=== PATIENT | female | born 1980 | race Caucasian/White ===

== ENCOUNTER 2019-08-27 16:35 | Emergency (ER) | payer BC ==
[2019-08-27] MEDS ORDERED: Sodium Chloride 0.9% 10 ML Syringe FLUSH PRN (17:07)
[2019-08-27] MEDS ORDERED: LORazepam 2 MG/ML SDV IVPUSH ONE (17:07)
[2019-08-27] MEDS ORDERED: Ketorolac 30 MG/ML SDV IVPUSH ONE (17:07)
--- NOTE | 2019-08-27 17:14 | EDM.PDOC ---
ED HPI GENERAL MEDICAL PROBLEM - General Chief Complaint: Chest Pain Stated Complaint: CHEST PAIN Time Seen by Provider: 08/27/19 16:47 Source of Information: Reports: Patient, Old Records (from patient's avery on phone), RN Notes Reviewed History Limitations: Reports: No Limitations - History of Present Illness INITIAL COMMENTS - FREE TEXT/NARRATIVE: Patient is a 38-year-old female who presents to the ED for the evaluation of midsternal chest pain. Patient notes that this is intermittent, feels like a dull ache at all times, but then sometimes increases to an intense gripping or pressure type feeling. Patient notes she did have pain like this once before about 1 year ago, and was found to be having a panic attack. Patient notes that her and her family were coming back from [facility] from a skiing trip, and she states the roads were not necessarily the greatest, so she was not sure if she was worked up due to the roads or not. Patient denies any heart history, or any lung issues prior to this. Patient states she has not been on any meds for her anxiety. She denies any sort of control use, she is not a smoker, and has not had any recent surgeries, however she did have a viral upper respiratory infection around beginning of July. Patient has a primary care provider out of [facility] in [facility]. Patient states she has some mild nausea, but no vomiting or diarrhea. She notes that she did not have any sort of trauma or accident while skiing. She does note however she thought she may have been a little "out of shape". Mid-Sternal Chest Pain Score (Numeric/FACES): 8 - Related Data Allergies Allergy/AdvReac Type Severity Reaction Status Date / Time No Known Allergies Allergy Verified 08/27/19 16:48 Home Meds: Home Meds Ergocalciferol (Vitamin D2) [Vitamin D2] 50,000 unit PO ASDIRECTED 08/27/19 [ History] Lisinopril/Hydrochlorothiazide [Lisinopril-HCTZ 10-12.5 MG] 1 tab PO DAILY 08/27 [History] amLODIPine [Norvasc] 5 mg PO DAILY 08/27/19 [History] metFORMIN [Glucophage] 500 mg PO DAILY 08/27/19 [History] Past Medical History HEENT History: Reports: Impaired Vision Other HEENT History: Wears glasses Cardiovascular History: Reports: Hypertension [employer] History: Reports: Endocrine/Metabolic History: Reports: Diabetes, Type II Social & Family History - Tobacco Use Smoking Status *Q: Former Smoker Used Tobacco, but Quit: Yes Month/Year Tobacco Last Used: 2008 - Recreational Drug Use Recreational Drug Use: No ED ROS GENERAL - Review of Systems Review Of Systems: See Below Constitutional: Denies: Fever, Chills Respiratory: Reports: Shortness of Breath (with pain spells). Denies: Wheezing , Cough Cardiovascular: Reports: Chest Pain (midsternal intermittent CP). Denies: Lightheadedness, Palpitations GI/Abdominal: Reports: Nausea. Denies: Abdominal Pain, Constipation, Diarrhea, Vomiting Musculoskeletal: Denies: Neck Pain, Shoulder Pain, Arm Pain, Back Pain Neurological: Denies: Numbness, Tingling ED EXAM, GENERAL - Physical Exam Exam: See Below Exam Limited By: No Limitations General Appearance: Alert, WD/WN, No Apparent Distress, Anxious (pt is somewhat tearful at time of exam, but does not appear overly anxious) Throat/Mouth: Normal Inspection, Normal Lips, Normal Teeth, Normal Gums, Normal Oropharynx, Normal Voice, No Airway Compromise Head: Atraumatic, Normocephalic Neck: Normal Inspection, Supple, Non-Tender, Full Range of Motion Respiratory/Chest: No Respiratory Distress, Lungs Clear, Normal Breath Sounds, No Accessory Muscle Use, Other (Left Chest tender to palpation over 3-4th rib, pt notes that this does reproduce the pain she was having) Cardiovascular: Normal Peripheral Pulses, Regular Rate, Rhythm, No Edema, No Murmur Peripheral Pulses: 3+: Radial (L), Radial (R) Back Exam: Normal Inspection, Full Range of Motion Extremities: Normal Inspection, Normal Range of Motion, Normal Capillary Refill Neurological: Alert, Oriented, Normal Cognition, No Motor/Sensory Deficits Psychiatric: Normal Affect, Anxious (slightly anxious), Tearful Skin Exam: Warm, Dry, Intact, Normal Color, No Rash EKG INTERPRETATION EKG Date: 08/27/19 Time: 17:15 Rhythm: NSR Rate (Beats/Min): 85 [place]: Normal P-Wave: Present QRS: Normal ST-T: Normal QT: Normal Comparison: NA - No Prior EKG EKG Interpretation Comments: No acute ischemic changes noted, this was reviewed by myself and Dr. Smith. Course - Vital Signs Last Recorded V/S: Last Vital Signs Temp 97.8 F 08/27/19 16:48 Pulse 95 08/27/19 16:48 Resp 22 H 08/27/19 16:48 BP 153/108 H 08/27/19 16:48 Pulse Ox 100 08/27/19 16:48 - Orders/Labs/Meds Orders: Active Orders 24 hr Category Date Time Status EKG Documentation Completion [RC] STAT Care 08/27/19 17:04 Ordered Peripheral IV Care [RC] . DIRECTED Care 08/27/19 17:07 Ordered Sodium Chloride 0.9% [Saline Flush] Med 08/27/19 17:07 Ordered 10 ml FLUSH ASDIRECTED PRN Peripheral IV Insertion Adult [OM.PC] Stat Oth 08/27/19 17:07 Ordered Medication Orders Sodium Chloride (Saline Flush) 10 ml FLUSH ASDIRECTED PRN PRN Reason: Keep Vein Open Last Admin: 08/27/19 17:40 Dose: 10 ml Labs: Laboratory Tests 08/27/19 08/27/19 08/27/19 Range/Units 17:15 17:15 17:15 WBC 6.66 (3.98-10.04) K/mm3 RBC 4.35 (3.98-5.22) M/mm3 Hgb 13.5 (11.2-15.7) gm/dl Hct 38.7 (34.1-44.9) % MCV 89.0 (79.4-94.8) fl MCH 31.0 (25.6-32.2) pg MCHC 34.9 (32.2-35.5) g/dl RDW Std Deviation 40.6 (36.4-46.3) fL Plt Count 265 (182-369) K/mm3 MPV 9.3 L (9.4-12.3) fl Neutrophils % (Manual) 51 (40-60) % Band Neutrophils % 0 (0-10) % Lymphocytes % (Manual) 38 (20-40) % Atypical Lymphs % 0 % Monocytes % (Manual) 4 (2-10) % Eosinophils % (Manual) 6 H (0.7-5.8) % Basophils % (Manual) 1 (0.1-1.2) Platelet Estimate Adequate RBC Morph Comment Normal D-Dimer, Quantitative 0.46 (0.19-0.50) mg/L Sodium 138 (136-145) mEq/L Potassium 3.3 L (3.5-5.1) mEq/L Chloride 104 (98-107) mEq/L Carbon Dioxide 25 (21-32) mEq/L Anion Gap 12.3 (5-15) BUN 14 (7-18) mg/dL Creatinine 0.8 (0.55-1.02) mg/dL Est Cr Clr Drug Dosing 69.16 mL/min Estimated GFR (MDRD) > 60 (>60) mL/min BUN/Creatinine Ratio 17.5 (14-18) Glucose 93 (74-106) mg/dL Calcium 9.0 (8.5-10.1) mg/dL Total Bilirubin 0.4 (0.2-1.0) mg/dL AST 19 (15-37) U/L ALT 44 (14-59) U/L Alkaline Phosphatase 57 (46-116) U/L Troponin I < 0.017 (0.00-0.056) ng/mL Total Protein 7.2 (6.4-8.2) g/dl Albumin 4.1 (3.4-5.0) g/dl Globulin 3.1 gm/dL Albumin/Globulin Ratio 1.3 (1-2) TSH 3rd Generation 1.834 (0.358-3.74) uIU/mL Meds: Medications Generic Name Dose Route Start Last Admin Trade Name Freq PRN Reason Stop Dose Admin Sodium Chloride 10 ml 08/27/19 17:07 08/27/19 17:40 Saline Flush FLUSH 10 ml ASDIRECTED PRN Administration Keep Vein Open Discontinued Medications Generic Name Dose Route Start Last Admin Trade Name Freq PRN Reason Stop Dose Admin Ketorolac Tromethamine 30 mg 08/27/19 17:07 08/27/19 17:28 Toradol IVPUSH 08/27/19 17:08 30 mg ONETIME ONE Administration Lorazepam 0.5 mg 08/27/19 17:07 08/27/19 17:33 Ativan IVPUSH 08/27/19 17:08 0.5 mg ONETIME ONE Administration - Re-Assessments/Exams Free Text/Narrative Re-Assessment/Exam: 08/27/19 17:17 Patient presents to the ED for evaluation of midsternal chest pain. Due to the patient's extended car travel, I do feel it pertinent to draw some labs and rule a few things out. Patient will get an EKG, CBC, CMP, troponin, d-dimer, and a TSH for further evaluation and 30 mg Toradol and 0.5 mg of IV Ativan for initial management. 08/27/19 18:04 Patient's labs are done, and are within normal limits. We will discharge the patient home and have her follow-up with her primary care provider, will recommend she might need to go on some sort of medication for anxiety. We will have her take 600 mg ibuprofen every 6 hours as needed for further pain relief, as a chest pain is likely due to costochondritis in nature. Departure - Departure Time of Disposition: 18:05 Disposition: Home, Self-Care 01 Condition: Fair Clinical Impression: Anxiety, Costochondral chest pain Instructions: Nonspecific Chest Pain, [id number] Referrals: PCP,Not In Area [Primary Care Provider] - Forms: ED Department Discharge Additional Instructions: You were evaluated in the ER today regarding your midsternal chest pain. Your work-up in the ER today was within normal limits, EKG was within normal limits, and labs showed no acute worrisome abnormalities. Your chest pain is most likely due to costochondritis, this is an inflammation of the rib lining in your chest. Management of this is ibuprofen 600 mg every 6 hours as needed. It is likely that you have some slight anxiety issues as well. Recommend you follow-up with your primary care provider, to see if they would want to start you on some sort of antianxiety regimen. Please return to the ED at any time if your symptoms change or worsen. - My Orders Last 24 Hours: My Active Orders 08/27/19 17:04 EKG Documentation Completion [RC] STAT 08/27/19 17:07 Peripheral IV Care [RC] . DIRECTED Sodium Chloride 0.9% [Saline Flush] 10 ml FLUSH ASDIRECTED PRN Peripheral IV Insertion Adult [OM.PC] Stat - Assessment/Plan Last 24 Hours: My Active Orders 08/27/19 17:04 EKG Documentation Completion [RC] STAT 08/27/19 17:07 Peripheral IV Care [RC] . DIRECTED Sodium Chloride 0.9% [Saline Flush] 10 ml FLUSH ASDIRECTED PRN Peripheral IV Insertion Adult [OM.PC] Stat
[2019-08-27] MEDS ORDERED: LORazepam 0.5 MG Tab PO ONE (18:12)
== END 2019-08-27 18:27 | disposition home or self-care (01) ==
LOC: JD.ED 16:35
DX: R07.1 Chest pain on breathing (principal); F41.9 Anxiety disorder, unspecified; I10 Essential (primary) hypertension; E11.9 Type 2 diabetes mellitus without complications; Z79.899 Other long term (current) drug therapy; Z79.84 Long term (current) use of oral hypoglycemic drugs; Z87.891 Personal history of nicotine dependence
CPT/HCPCS: 36415; 80053; 84443; 84484; 85007; 85027; 85379; 93005; 96374; 96375; 99285; A9270; J1885; J2060; 93010; 99284